=== PATIENT | female | born 1975 | race Caucasian/White ===

== ENCOUNTER 2024-01-09 17:45 | Emergency (ER) | payer BC ==
[~2024-01-09] VITALS: Ht 160 cm; Wt 89.5 kg
[2024-01-09] MEDS: LIDOcaine 1% W/epiNEPHrine 1:100,000 20ml vial SQ ONE (19:58)
[2024-01-09] MEDS: TETanus/Pertussis (Acell)/Diphther VAC/PF (Tdap-Adult) 0.5ml syringe IMVAC ONE (20:07)
[2024-01-09] MEDS ORDERED: MELO-100 PO (21:25)
[2024-01-09] MEDS ORDERED: AMOX-580 PO (21:25)
[2024-01-09 21:41] VITALS: BP 140/87; PULSE 77; RESP 15; TEMP 98.1; O2SAT 100
== END 2024-01-09 21:43 | disposition home or self-care (01) ==
LOC: ER 17:45
DX: S61.411A Laceration without foreign body of right hand, initial encounter (principal); W54.0XXA Bitten by dog, initial encounter; Y93.89 Activity, other specified; Y92.89 Other specified places as the place of occurrence of the external cause; Y99.8 Other external cause status
CPT/HCPCS: 12001; 73130; 90471; 90715; 99283; A6222; A6258; A6449